=== PATIENT | female | born 1995 | race Caucasian/White ===

== ENCOUNTER → 2018-08-10 13:52 | Observation (INO) ==
[2018-08-10 13:08] LABS: Basophils % 0.3 %; Eosinophils # 0.1 K/mcL (0.0-0.6); Eosinophils % 0.5 %; Hematocrit 35.9 % (35.3-44.9); Hemoglobin 12.1 g/dL (11.5-15.4); Immature Granulocytes % 0.4 % (0-4); Lymphocytes # 2.1 K/mcL (0.6-4.6); Lymphocytes % 15.7 %; Mean Corpuscular HGB Conc 33.7 g/dL (31.6-35.5); Mean Corpuscular Hemoglobin 30.9 pg (28.0-33.3); Mean Corpuscular Volume 91.6 fL (83.0-100.0); Mean Platelet Volume 11.5 fL (9.4-12.4); Monocytes # 0.9 K/mcL (0.0-1.3); Monocytes % 6.8 %; Neutrophils # 10.3 K/mcL (1.6-8.9); Platelet Count 209 K/mcL (140-400); Red Blood Count 3.92 M/mcL (3.82-4.97); Red Cell Distribution Width 13.6 % (11.5-14.5); Segmented Neutrophils % 76.3 %
[2018-08-10 13:34] LABS: Amphetamine Screen,Urine Negative ng/mL (Cutoff=1000); Barbiturate Screen,Urine Negative ng/mL (Cutoff=200); Benzodiazepines Screen,Urine Negative ng/mL (Cutoff=200); Cannabinoid Screen,Urine Negative ng/mL (Cutoff = 50); Cocaine Screen,Urine Negative ng/mL (Cutoff= 300); Opiate Screen,Urine Negative ng/mL (Cutoff=300); Phencyclidine Screen,Urine Negative ng/mL (Cutoff=25)
[2018-08-10 13:37] LABS: Alanine Aminotransferase 8 Units/L (7-52); Aspartate Amino Transferase 10 Units/L (13-39); BUN/Creatinine Ratio 11 (6-26); Blood Urea Nitrogen 5 mg/dL (6-20); Lactate Dehydrogenase 119 Units/L (140-271); Uric Acid 4.9 mg/dL (2.3-7.6); eGFR For Non-African Americans > 60 (> 60)
[2018-08-10 13:38] LABS: Protein/Creatinine Ratio,Urine 0.17 mg/mg (0.00-0.20)
--- NOTE | 2018-08-10 13:46 | Discharge Summary ---
Date of Encounter: 08/10/18 Time of Encounter: 13:45 - Discharge Diagnosis (1) headache in third trimester Priority: Secondary Status: Acute Comments: Tylenol 650 mg by mouth every 6 hours when necessary for headache Increase hydration PIH evaluation negative (2) 38 weeks gestation of Priority: Primary Status: Acute Comments: Follow-up with Dr. Ramos next week as scheduled Labor parameters discussed Discharge home - Discharge Medications Home Medications: RX: Cetirizine HCl 10 mg PO DAILY 30 Days #30 tablet 04/29/18 [Rx] Allergies/Adverse Reactions: Allergy/AdvReac Type Severity Reaction Status Date / Time sulfamethoxazole Allergy Rash Verified 04/29/18 11:43 [From Bactrim] trimethoprim [From Bactrim] Allergy Rash Verified 04/29/18 11:43 Data Procedures and tests throughout hospitalization: Laboratory Tests 08/10/18 08/10/18 08/10/18 12:32 12:38 12:38 WBC 13.5 H RBC 3.92 Hgb 12.1 Hct 35.9 MCV 91.6 MCH 30.9 MCHC 33.7 RDW 13.6 Plt Count 209 MPV 11.5 Immature Gran % 0.4 Seg Neutrophils % 76.3 Lymphocytes % 15.7 Monocytes % 6.8 Eosinophils % 0.5 Basophils % 0.3 Neutrophils # 10.3 H Lymphocytes # 2.1 Monocytes # 0.9 Eosinophils # 0.1 Basophils # 0.0 BUN Creatinine Est GFR ( Amer) Est GFR (Non-Af Amer) BUN/Creatinine Ratio Uric Acid AST ALT Lactate Dehydrogenase Urine Creatinine 112 Protein/Creatinin Ratio 0.17 Urine Total Protein 19 H Urine Opiates Screen Negative Ur Barbiturates Screen Negative Ur Phencyclidine Scrn Negative Ur Amphetamines Screen Negative U Benzodiazepines Scrn Negative Urine Cocaine Screen Negative U Marijuana (THC) Screen Negative Ur Drug Screen Interp See Below 08/10/18 12:38 WBC RBC Hgb Hct MCV MCH MCHC RDW Plt Count MPV Immature Gran % Seg Neutrophils % Lymphocytes % Monocytes % Eosinophils % Basophils % Neutrophils # Lymphocytes # Monocytes # Eosinophils # Basophils # BUN 5 L Creatinine 0.46 L Est GFR ( Amer) > 60 Est GFR (Non-Af Amer) > 60 BUN/Creatinine Ratio 11 Uric Acid 4.9 AST 10 L ALT 8 Lactate Dehydrogenase 119 L Urine Creatinine Protein/Creatinin Ratio Urine Total Protein Urine Opiates Screen Ur Barbiturates Screen Ur Phencyclidine Scrn Ur Amphetamines Screen U Benzodiazepines Scrn Urine Cocaine Screen U Marijuana (THC) Screen Ur Drug Screen Interp Labs on day of discharge: Labs from last 24 hours 08/10/18 08/10/18 08/10/18 12:38 12:38 12:38 WBC 13.5 H RBC 3.92 Hgb 12.1 Hct 35.9 MCV 91.6 MCH 30.9 MCHC 33.7 RDW 13.6 Plt Count 209 MPV 11.5 Immature Gran % 0.4 Seg Neutrophils % 76.3 Lymphocytes % 15.7 Monocytes % 6.8 Eosinophils % 0.5 Basophils % 0.3 Neutrophils # 10.3 H Lymphocytes # 2.1 Monocytes # 0.9 Eosinophils # 0.1 Basophils # 0.0 BUN 5 L Creatinine 0.46 L Est GFR ( Amer) > 60 Est GFR (Non-Af Amer) > 60 BUN/Creatinine Ratio 11 Uric Acid 4.9 AST 10 L ALT 8 Lactate Dehydrogenase 119 L Urine Creatinine 112 Protein/Creatinin Ratio 0.17 Urine Total Protein 19 H Urine Opiates Screen Ur Barbiturates Screen Ur Phencyclidine Scrn Ur Amphetamines Screen U Benzodiazepines Scrn Urine Cocaine Screen U Marijuana (THC) Screen Ur Drug Screen Interp 08/10/18 12:32 WBC RBC Hgb Hct MCV MCH MCHC RDW Plt Count MPV Immature Gran % Seg Neutrophils % Lymphocytes % Monocytes % Eosinophils % Basophils % Neutrophils # Lymphocytes # Monocytes # Eosinophils # Basophils # BUN Creatinine Est GFR ( Amer) Est GFR (Non-Af Amer) BUN/Creatinine Ratio Uric Acid AST ALT Lactate Dehydrogenase Urine Creatinine Protein/Creatinin Ratio Urine Total Protein Urine Opiates Screen Negative Ur Barbiturates Screen Negative Ur Phencyclidine Scrn Negative Ur Amphetamines Screen Negative U Benzodiazepines Scrn Negative Urine Cocaine Screen Negative U Marijuana (THC) Screen Negative Ur Drug Screen Interp See Below Date of admission: 08/10/18 11:59 Primary care physician: Morena Kim Discharging clinician: Mona Pollard Anticipated date of discharge: 08/10/18 - Patient Status Disposition: Home, Self-Care Condition: Good Functional capacity at discharge: independent ambulation Overall status at discharge: patient is progressing back to baseline - Discharge Instructions Follow Up With: Morena Kim MD [Primary Care Provider] - Kevin Ramos DO [Partnered Physician] - - Diet and Activity Activity: increase activity as tolerated Diet: regular diet Hospital Course [employer] Reason for admission: other Discharge diagnosis: other Hospital course: Mr. Bernard is a 22-year-old at 38 weeks 3 days gestation who presents from the office with complaints of headache 3 days and gradual onset of facial swelling. She endorses good movement and denies leakage of fluid, vaginal bleeding she does report occasional contractions. She states she has not tried anything to make her headache better but nothing has made it worse. She denies visual changes and epigastric pain. A full PIH evaluation was completed and found to be negative. Labor parameters were discussed as well as preeclampsia parameters. She is advised to keep her follow-up appointment with Dr. Ramos next week. She was discharged, stable condition. Time Attestation: Total time spent providing and/or coordinating discharge services: Time Spent: Less than 30 minutes Exam - Constitutional General appearance IM: A&O X 3 - Respiratory Respiratory exam: Present: CTAB - Cardiovascular Cardiovascular exam IM: Present: RRR, +S1, +S2 - GI/Abdominal GI/Abdominal exam IM: normal bowel sounds, no peritoneal signs - Rectal Rectal exam: deferred - Uterine Tone: Firm - Extremities Exam Extremities exam IM: Present: normal capillary refill, normal inspection, radial pulses palpable and symmetrical - Neurological Exam Neurological exam: alert, CN II-XII intact, normal gait, oriented X3, reflexes normal, no focal deficits, strengths equal and symetr throughout - VTE Reasons for not Prescribing Prophylaxis: Treatment not Indicated - Low risk for VTE
[~2018-08-10 13:52] MED LIST: Acetaminophen 325 MG TABLET PO ONE
== END | disposition home or self-care (01) ==
LOC: 1NENULAB
PROVIDERS: ADMIT Advanced Practice Midwife; ATTEND Advanced Practice Midwife

== ENCOUNTER 2021-02-13 14:20 | Inpatient (IN) ==
[2021-02-13 15:06] LABS: Bacteria,Urine Few per hpf (None-Few); Bilirubin,Urine Negative (Negative); Blood,Urine Negative (Negative); Clarity,Urine Clear (Clear); Color,Urine Yellow (Yellow); Glucose,Urine (UA) Normal (Normal); Ketones,Urine Negative (Negative); Leukocyte Esterase,Urine Negative (Negative); Mucus,Urine Few per lpf (None-Few); Nitrite,Urine Negative (Negative); Protein,Urine 50 mg/dL (Neg-Trace); RBC,Urine 0-3 per hpf (0-3); Specific Gravity,Urine 1.029 (1.010-1.025); Squamous Epithelial Cell,Urine Few per hpf (None-Few)
[2021-02-13 15:10] LABS: Basophils # 0.1 K/mcL (0.0-0.2); Basophils % 0.4 %; Eosinophils # 0.1 K/mcL (0.0-0.6); Eosinophils % 0.7 %; Hematocrit 40.7 % (35.3-44.9); Hemoglobin 13.6 g/dL (11.5-15.4); Immature Granulocytes % 0.4 % (0-4); Lymphocytes # 2.7 K/mcL (0.6-4.6); Mean Corpuscular HGB Conc 33.4 g/dL (31.6-35.5); Mean Corpuscular Hemoglobin 32.5 pg (28.0-33.3); Mean Corpuscular Volume 97.1 fL (83.0-100.0); Monocytes # 0.6 K/mcL (0.0-1.3); Monocytes % 4.6 %; Neutrophils # 9.9 K/mcL (1.6-8.9); Platelet Count 260 K/mcL (140-400); Red Blood Count 4.19 M/mcL (3.82-4.97); Red Cell Distribution Width 12.8 % (11.5-14.5); Segmented Neutrophils % 73.9 %; White Blood Count 13.4 K/mcL (4.3-11.1)
[2021-02-13 15:18] LABS: Amphetamine Screen,Urine Positive ng/mL (Cutoff=1000); Barbiturate Screen,Urine Negative ng/mL (Cutoff=200); Benzodiazepines Screen,Urine Negative ng/mL (Cutoff=200); Cannabinoid Screen,Urine Positive ng/mL (Cutoff = 50); Cocaine Screen,Urine Negative ng/mL (Cutoff= 300); Opiate Screen,Urine Negative ng/mL (Cutoff=300); Phencyclidine Screen,Urine Negative ng/mL (Cutoff=25)
[2021-02-13 15:31] LABS: Acetaminophen < 10 mcg/mL (10-20); Alanine Aminotransferase 15 Units/L (7-52); Albumin 4.5 g/dL (3.5-5.7); Albumin/Globulin Ratio 1.7 (1.1-2.2); Alkaline Phosphatase 71 Units/L (34-104); Aspartate Amino Transferase 15 Units/L (13-39); BUN/Creatinine Ratio 8 (6-26); Bilirubin,Direct 0.1 mg/dL (0.0-0.2); Bilirubin,Indirect 0.3 mg/dL (0.0-1.0); Bilirubin,Total 0.4 mg/dL (0.3-1.0); Blood Urea Nitrogen 6 mg/dL (6-20); Calcium 9.5 mg/dL (8.6-10.3); Carbon Dioxide 21 mEq/L (23-29); Chloride 109 mEq/L (98-107); Chol/HDL Ratio 4.6 (0-4.9); Cholesterol 144 mg/dL (< 200); Ethanol < 10 mg/dL (Less than 10); Globulin 2.7 g/dL (2.4-3.5); Glucose 102 mg/dL (70-105); HDL Cholesterol 31 mg/dL (40-59); LDL Cholesterol,Calculated 89 mg/dL (< 100); Osmolality,Calculated 284 (280-300); Potassium 3.2 mEq/L (3.5-5.1); Salicylate < 2.5 mg/dL (15.0-30.0); Sodium 138 mEq/L (136-145); Total Protein 7.2 g/dL (6.4-8.9); Triglycerides 119 mg/dL (< 150); eGFR For African Americans > 60 (> 60); eGFR For Non-African Americans > 60 (> 60)
[2021-02-13 15:54] LABS: Estimated Average Glucose 108 mg/dl; Hemoglobin A1C 5.4 %
[2021-02-13 18:25] LABS: Adenovirus Not Detected (Not Detect); Bordetella Pertussis Not Detected (Not Detect); Chlamydophila pneumoniae Not Detected (Not Detect); Coronavirus 229E Not Detected (Not Detect); Coronavirus HKU1 Not Detected (Not Detect); Coronavirus NL63 Not Detected (Not Detect); Coronavirus OC43 Not Detected (Not Detect); Human Metapneumovirus Not Detected (Not Detect); Human Rhinovirus/Enterovirus Not Detected (Not Detect); Influenza A Subtype 2009 H1 Not Detected (Not Detect); Influenza B Not Detected (Not Detect); Mycoplasma pneumoniae Not Detected (Not Detect); Parainfluenza Virus 1 Not Detected (Not Detect); Parainfluenza Virus 2 Not Detected (Not Detect); Parainfluenza Virus 3 Not Detected (Not Detect); Parainfluenza Virus 4 Not Detected (Not Detect); Respiratory Syncytial Virus Not Detected (Not Detect); SARS-CoV-2 Not Detected (Not Detect)
[2021-02-13] MEDS ORDERED: *HR* LORazepam 1 MG TABLET PO PRN (18:47)
[2021-02-13] MEDS ORDERED: Ibuprofen 400 MG TABLET PO PRN (18:47)
[2021-02-13] MEDS ORDERED: *HR* LORazepam 2 MG/ML VIAL IM PRN (18:47)
[2021-02-13] MEDS ORDERED: Haloperidol Lactate 5 MG/ML VIAL IM PRN (18:47)
[2021-02-13] MEDS ORDERED: haloperidoL 5 MG TABLET PO PRN (18:47)
[2021-02-13] MEDS: hydrOXYzine pamoate 25 MG CAPSULE PO PRN (20:31)
[2021-02-13] MEDS: traZODone 50 MG TABLET PO PRN (20:31)
[2021-02-14 08:36] LABS: Hematocrit 43.2 % (35.3-44.9); Hemoglobin 14.3 g/dL (11.5-15.4); Mean Corpuscular HGB Conc 33.1 g/dL (31.6-35.5); Mean Corpuscular Hemoglobin 32.9 pg (28.0-33.3); Mean Corpuscular Volume 99.5 fL (83.0-100.0); Mean Platelet Volume 10.9 fL (9.4-12.4); Platelet Count 259 K/mcL (140-400); Red Blood Count 4.34 M/mcL (3.82-4.97); White Blood Count 7.8 K/mcL (4.3-11.1)
[2021-02-14] MEDS ORDERED: Nicotine 14 MG PATCH.TD24 TD SCH (09:00)
[2021-02-14 11:45] LABS: Alanine Aminotransferase 16 Units/L (7-52); Albumin 4.4 g/dL (3.5-5.7); Albumin/Globulin Ratio 1.7 (1.1-2.2); Alkaline Phosphatase 70 Units/L (34-104); Aspartate Amino Transferase 15 Units/L (13-39); BUN/Creatinine Ratio 10 (6-26); Bilirubin,Total 0.6 mg/dL (0.3-1.0); Blood Urea Nitrogen 9 mg/dL (6-20); Calcium 9.7 mg/dL (8.6-10.3); Carbon Dioxide 25 mEq/L (23-29); Chloride 109 mEq/L (98-107); Globulin 2.6 g/dL (2.4-3.5); Glucose 91 mg/dL (70-105); Osmolality,Calculated 288 (280-300); Potassium 4.3 mEq/L (3.5-5.1); Sodium 140 mEq/L (136-145); eGFR For African Americans > 60 (> 60); eGFR For Non-African Americans > 60 (> 60)
[2021-02-14] MEDS: Nicotine 2 MG GUM BC PRN ×2 (16:29→19:27)
[2021-02-14] MEDS: traZODone 50 MG TABLET PO PRN (20:44)
[2021-02-14] MEDS: hydrOXYzine pamoate 25 MG CAPSULE PO PRN (20:44)
[2021-02-15] MEDS ORDERED: Nicotine 21 MG PATCH.TD24 TD SCH (09:00)
[2021-02-15 10:42] VITALS: BP 121/77
[2021-02-15] MEDS: hydrOXYzine pamoate 25 MG CAPSULE PO PRN (11:08)
== END 2021-02-15 14:05 | disposition home or self-care (01) | DRG 882 ==
LOC: EMEROOARM 14:20 → 1ANU 18:45
PROVIDERS: ADMIT Psychiatry & Neurology Forensic Psychiatry; ATTEND Psychiatry & Neurology Forensic Psychiatry